=== PATIENT | female | born 1975 | race Caucasian/White ===

== ENCOUNTER → 2016-12-15 | Outpatient (CLI) | payer OTHER ==
[~2016-12-15] MED LIST: ACID CONTROL150 MG PO; ALLERGY RELIEF4 MG PO; FLEXERIL 10 MG10 MG PO; HYDROCHLOROTHIA25 MG PO; NAPROXEN SODIU220 MG PO; NEURONTIN 300300 MG PO; PERCOCET 7.5-31 EACH PO; PROVENTIL HFA 61 INH INH; [UNRECOGNIZED DRUG - OTHER] INH
[2016-12-15 09:29] LABS: HEMOGLOBIN 14.5 gm/dl (12.3-15.3); RED BLOOD COUNT 4.9 M/UL (4.00-5.10); WHITE BLOOD COUNT 10.2 K/UL (4.5-11.0)
[2016-12-15 09:46] LABS: BUN/CREATININE RATIO 7 (0-10)
== END ==
LOC: OPSV2 07:57
PROVIDERS: Orthopaedic Surgery
DX: Z01.812 Encounter for preprocedural laboratory examination (principal); T84.84XA Pain due to internal orthopedic prosthetic devices, implants and grafts, initial encounter; Z98.51 Tubal ligation status
CPT/HCPCS: 36415; 80048; 85027

== ENCOUNTER → 2016-12-21 | Day surgery (SDC) | payer OTHER ==
[~2016-12-21] VITALS: Ht 162.6 cm; Wt 82.6 kg
== END | disposition home or self-care (01) ==
LOC: OR 09:02
PROVIDERS: Orthopaedic Surgery
PROC: 0YP90JZ Removal of Synthetic Substitute from Right Lower Extremity, Open Approach (ICD-10-PCS; principal; 2016-12-21 12:15)
DX: T84.84XA Pain due to internal orthopedic prosthetic devices, implants and grafts, initial encounter (principal); S82.201D Unspecified fracture of shaft of right tibia, subsequent encounter for closed fracture with routine healing; F17.210 Nicotine dependence, cigarettes, uncomplicated; J45.909 Unspecified asthma, uncomplicated; I10 Essential (primary) hypertension; M19.90 Unspecified osteoarthritis, unspecified site; G89.29 Other chronic pain; Z90.49 Acquired absence of other specified parts of digestive tract; Z98.51 Tubal ligation status; Z98.41 Cataract extraction status, right eye; Z98.42 Cataract extraction status, left eye; Z79.899 Other long term (current) drug therapy; Z87.19 Personal history of other diseases of the digestive system; X58.XXXD Exposure to other specified factors, subsequent encounter
CPT/HCPCS: 73590; 76000; J0690; J1100; J2250; J2405; J3010; J7120

== ENCOUNTER → 2021-11-28 | Outpatient (CLI) | payer MEDICARE, OTHER ==
[2021-11-28 14:29] LABS: HEMOGLOBIN 14.4 gm/dl (12.3-15.3); RED BLOOD COUNT 4.9 M/UL (4.00-5.10); WHITE BLOOD COUNT 9.6 K/UL (4.5-11.0)
[2021-11-28 15:03] LABS: BUN/CREATININE RATIO 14 (0-10)
== END ==
LOC: LAB 12:58
PROVIDERS: Family Medicine
DX: E53.8 Deficiency of other specified B group vitamins (principal); E55.9 Vitamin D deficiency, unspecified; E78.5 Hyperlipidemia, unspecified; F32.A Depression, unspecified; M47.816 Spondylosis without myelopathy or radiculopathy, lumbar region; M43.17 Spondylolisthesis, lumbosacral region
CPT/HCPCS: 36415; 72110; 80053; 80061; 82607; 84443; 85027

== ENCOUNTER → 2022-01-24 | Outpatient (CLI) | payer MEDICARE | LOC: MRI 10:25 | DX: M54.16 Radiculopathy, lumbar region (principal); M43.17 Spondylolisthesis, lumbosacral region; M48.07 Spinal stenosis, lumbosacral region | CPT/HCPCS: 72148 ==

== ENCOUNTER 2022-06-06 19:02 | Emergency (ER) | payer MEDICARE | END 2022-06-06 20:55 | disposition home or self-care (01) | LOC: ER1 19:02 | DX: M25.552 Pain in left hip (principal); F17.200 Nicotine dependence, unspecified, uncomplicated | CPT/HCPCS: 73502; 96372; 99283; J2270 ==